=== PATIENT | female | born 1960 | race Caucasian/White ===

== ENCOUNTER → 2019-04-12 | Outpatient (CLI) | payer BC, OTHER ==
[~2019-04-12] MED LIST: AMLO5TAB OR; HYDR25TA6 OR
--- NOTE | 2019-04-12 09:56 | ECGEPIP ---
[facility] Test Date: 2019-04-12 Pat Name: KIKE GARAY Department: Room: - Gender: Female [employer]: HONG : 1960 Requested By: EZEQUIEL Ott Order Number: [id number] Reading MD: Braulio Brannon Measurements Intervals Earling Rate: 80 P: 48 CA: 139 QRS: 7 QRSD: 97 T: 58 QT: 406 QTc: 469 Interpretive Statements SINUS RHYTHM Comparison tracing not on file Borderline prolonged QT interval Baseline artifact Electronically Signed on 04-12-2019 9:56:08 EDT by Braulio Brannon
[2019-04-12 10:03] LABS: BLOOD UREA NITROGEN 12 MG/DL (7-18); CALCIUM LEVEL 9.4 MG/DL (8.5-10.1); CARBON DIOXIDE LEVEL 26 MEQ/L (21-32); CHLORIDE LEVEL 105 MEQ/L (98-107); CREATININE FOR GFR 0.74 MG/DL (0.55-1.30); GLOMERULAR FILTRATION RATE > 60.0 (>51); GLUCOSE, FASTING 89 MG/DL (70-100); POTASSIUM SERUM 3.9 MEQ/L (3.5-5.1); SODIUM LEVEL 140 MEQ/L (136-145)
== END ==
LOC: M LAB 08:05
PROVIDERS: ATTEND Orthopaedic Surgery
DX: Z01.812 Encounter for preprocedural laboratory examination (principal); M20.22 Hallux rigidus, left foot

== ENCOUNTER → 2021-07-01 | Outpatient (CLI) | payer BC ==
--- NOTE | 2021-07-01 09:56 | REPMRS ---
Patient History The patient states she had a clinical breast exam in May 2021. Patient is postmenopausal. No known family history of cancer. Tomosynthesis is performed. Volpara breast density is b. Tyrer-Cuzick lifetime risk of breast cancer 7.8%. Patient states no breast complaints today. Patient has signed MRS History Sheet. Digital Woman Screen Mammo: July 01, 2021 - Exam #: [id number] Bilateral CC and MLO view(s) were taken. Technologist: Ct Elizalde Technologist Prior study comparison: June 12, 2020, bilateral digital mammo screening bilat, performed at [facility]. June 06, 2019, bilateral digital mammo screening bilat, performed at [facility]. FINDINGS: There are scattered fibroglandular densities. There has been no change in the appearance of the mammogram from the prior studies. There is a mild amount of residual fibroglandular tissue which is fairly symmetric. There is no interval development of dominant mass, architectural distortion, or clustered microcalcification suggestive of malignancy. Assessment: BI-RADS/ACR category 1 mammogram. Negative Mammogram. Recommendation Routine screening mammogram in 1 year (for women over age 40). This mammogram was interpreted with the aid of an FDA-approved computer-aided dectection system. Electronically Signed By: David Colon MD 07/01/21 [id number]
--- NOTE | 2021-07-01 10:08 | DEXAMM ---
INDICATION: M85.80 DISORDER OF BONE. COMPARISON: 06/06/2019, 02/17/2017. TECHNIQUE: Bone density was measured using dual-energy x-ray absorptiometry (DEXA). FINDINGS: AP SPINE L1-L4 BMD 1.073 g/cm2 Young Adult T-Score -1.0 Age Matched Z-Score 0.2. LT FEMUR, TOTAL BMD 0.933 g/cm2 Young Adult T-Score -0.6 Age Matched Z-Score 0.3. LT NECK BMD 0.838 g/cm2 Young Adult T-Score -1.4 Age Matched Z-Score -0.2. RT FEMUR, TOTAL BMD 0.882 g/cm2 Young Adult T-Score -1.0 Age Matched Z-Score -0.1. RT NECK BMD 0.822 g/cm2 Young Adult T-Score -1.6 Age Matched Z-Score -0.3. IMPRESSION: There is low bone density of the spine. There is low bone density of the left hip. There is low bone density of the right hip. The density of the spine has increased 16.1% since the initial exam on 02/17/2017. The density of the spine decreased 1.0% since most recent exam on 06/06/2019. The density of the left hip has increased 5.4% since initial exam on 02/17/2017. The density of the left hip has decreased 4.0% since most recent exam on 06/06/2019. The density of the right hip has decreased 6.2% since the initial exam on 06/06/2019. FOLLOW-UP: Recommendation for the next bone density exam: 2 years. <Electronically signed by David Colon > 07/01/21 1002
== END ==
LOC: M WHC 07:17
PROVIDERS: ATTEND Internal Medicine
DX: Z12.31 Encounter for screening mammogram for malignant neoplasm of breast (principal); M85.88 Other specified disorders of bone density and structure, other site; M85.851 Other specified disorders of bone density and structure, right thigh; M85.852 Other specified disorders of bone density and structure, left thigh

== ENCOUNTER → 2022-07-15 | Outpatient (CLI) | payer BC | LOC: M WHC 08:37 | PROVIDERS: ATTEND Internal Medicine | DX: Z12.31 Encounter for screening mammogram for malignant neoplasm of breast (principal) ==

== ENCOUNTER → 2023-08-12 | Outpatient (CLI) | payer BC, OTHER | LOC: M WHC 09:43 | PROVIDERS: ATTEND Internal Medicine | DX: Z12.31 Encounter for screening mammogram for malignant neoplasm of breast (principal); M85.89 Other specified disorders of bone density and structure, multiple sites ==

== ENCOUNTER → 2025-01-08 | Outpatient (CLI) | payer BC | LOC: M WHC 09:18 | PROVIDERS: ATTEND Internal Medicine | DX: Z12.31 Encounter for screening mammogram for malignant neoplasm of breast (principal) ==